=== PATIENT | female | born 1990 | race Hispanic/Latino ===

== ENCOUNTER 2016-02-13 10:18 | Emergency (ER) | payer OTHER ==
[~2016-02-13 10:18] MED LIST: ACET50TA PO; FERR325T3 PO; IBUP80TA PO
--- NOTE | 2016-02-13 11:08 | EDDOCDS ---
Nurse's Notes [facility] Name: Le Marquis Age: 25 yrs Sex: Female : 1990 Arrival Date: 02/13/2016 Time: 10:18 Bed Family 1 Private MD: AZRA Bermudez Diagnosis: Otitis media, unspecified Presentation: 02/12 10:33 Presenting complaint: Patient states: woke with left ear pain today. Adult Sepsis kr3 Screening: The patient does not have new or worsening altered mentation. Patient's respiratory rate is less than 22. Systolic blood pressure is greater than 100. Patient has a qSOFA score of 0- Negative Sepsis Screen. Suicide/Homicide risk assessment- the patient denies having any suicidal and/or homicidal ideations and does not present with any other emotional, behavioral or mental health complaints. Status: The patient is a dependent. Transition of care: patient was not received from another setting of care. 10:33 Acuity: HENNA Level 5 kr3 10:33 Method Of Arrival: Walkin/Carried/Asstd kr3 Triage Assessment: 10:34 General: Appears in no apparent distress, comfortable, Behavior is cooperative. Pain: kr3 Location: left ear Pain currently is 5 out of 10 on a pain scale. Pt Declines HIV testing. EENT: Reports nasal congestion nasal discharge. Respiratory: Respiratory effort is even, unlabored, Reports cough that is. Derm: Skin is pink, warm & dry. 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 Tylenol 1000mg Oral as needed (Last dose: 02/13/2016) - PMHx: none; - PSHx: none; - Social history: Smoking status: Patient states was never smoker of tobacco. No barriers to communication noted, The patient speaks fluent Maltese, Speaks appropriately for age. - Family history: Not pertinent. - : The pt / caregiver states he / she is not on anticoagulants. Home medication list is obtained from the patient. - Exposure Risk Screening:: None identified. Screenin:42 Screening information is obtained from the patient. Fall risk: No risks identified. kr3 Assistance ADL's: requires no assistance with activities of daily living. Abuse/DV Screen: The patient / caregiver reports he/she is: not in a situation that causes fear, pain or injury. Nutritional screening: No deficits noted. Advance Directives: Currently, there is no health care proxy. home support is adequate. Assessment: 10:42 General: Appears in no apparent distress, comfortable, Behavior is appropriate for age, kr3 cooperative. Vital Signs: 10:19 BP 101 / 60; Pulse 77; Resp 18 S; Temp 97.6(O); Pulse Ox 97% on R/A; Weight 58.97 kg dd6 (R); Height 5 ft. 0 in. (152.40 cm) (R); 10:19 Body Mass Index 25.39 (58.97 kg, 152.40 cm) dd6 Vitals: 10:19 Log In Time: February 13, 2016 at 10:14. dd6 ED Course: 10:19 Patient visited by Collin Hayes PCA. dd6 10:19 ANIBAL Bermudez is Private Physician. dd6 10:19 Patient moved to Waiting dd6 10:20 Patient moved to Pre RCE dd6 10:30 Rich Vitale PA-C is PHCP. dk1 10:30 Vanesa Pascal MD is Attending Physician. dk1 10:33 Triage Initiated kr3 10:38 Patient moved to Family 1 kr3 10:40 Patient visited by Rich Vitale PA-C. dk1 10:43 The patient / caregiver is instructed regarding the plan of care and ED course. Patient kr3 has correct armband on for positive identification. 10:43 No IV's were initiated during this patient's visit. No procedures done that require kr3 assistance. 10:59 ANIBAL Bermudez is Referral Physician. dk1 Order Results: There are currently no results for this order. Outcome: 10:43 No special radiology studies were completed. kr3 10:59 Discharge ordered by Provider. dk1 11:06 Discharge Assessment: patient administered narcotics - no. The following High Risk kr3 Discharge criteria are identified: None. Discharged to home ambulatory. Condition: stable. Discharge instructions given to patient, Demonstrated understanding of instructions, medications, Pt was receptive of discharge instructions/ teaching. Prescriptions given X 2. Property sent home with patient. 11:06 Patient left the ED. kr3 Signatures: Santa GaleRN RN kr3 Rich Vitale PA-C PA-C dk1 DesCollin gibbs, RECORD CENTER SPECIALIST RECORD CENTER SPECIALIST dd6 MTDD
--- NOTE | 2016-02-13 11:08 | EDDOCDS ---
Physician Documentation [facility] Name: Le Marquis Age: 25 yrs Sex: Female : 1990 Arrival Date: 02/13/2016 Time: 10:18 Bed Family 1 Private MD: ANIBAL Bermudez Disposition: 02/13/16 10:59 Discharged to Home/Self Care. Impression: Otitis media, unspecified. - Condition is Stable. - Discharge Instructions: Otitis Media, Adult. - Prescriptions for Amoxicillin 500 mg Oral Capsule - take 1 capsule by ORAL route every 8 hours for 10 days; 30 tablet. Tylenol 325 mg Oral Tablet - take 2 tablet by ORAL route every 6 hours as needed; 1 bottle. - Medication Reconciliation, Local Pharmacy Hours form. - Follow up: ANIBAL Bermudez; When: 2 - 3 days; Reason: Continuance of care. Follow up: Emergency Department; When: As needed; Reason: Worsening of conditions. - Problem is new. - Symptoms are unchanged. Historical: - Allergies: no known allergies; - Home Meds: 1. Tylenol 1000mg Oral as needed (Last dose: 02/13/2016) - PMHx: none; - PSHx: none; - Social history: Smoking status: Patient states was never smoker of tobacco. No barriers to communication noted, The patient speaks fluent Israeli, Speaks appropriately for age. - Family history: Not pertinent. - : The pt / caregiver states he / she is not on anticoagulants. Home medication list is obtained from the patient. - Exposure Risk Screening:: None identified. 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 0 in. (152.40 cm) (R); 10:19 Body Mass Index 25.39 (58.97 kg, 152.40 cm) dd6 MDM: 10:54 Financial registration complete. lg Signatures: Collin Ortiz, Santa Espinoza lgRN RN kr3 Rich Vitale PA-C PAChristina dk1 MTDD
--- NOTE | 2016-02-15 12:07 | EDDOCDS ---
Physician Documentation [facility] Name: Le Marquis Age: 25 yrs Sex: Female : 1990 Arrival Date: 02/13/2016 Time: 10:18 Bed Family 1 Private MD: ANIBAL Bermudez Disposition: 02/13/16 10:59 Discharged to Home/Self Care. Impression: Otitis media, unspecified. - Condition is Stable. - Discharge Instructions: Otitis Media, Adult. - Prescriptions for Amoxicillin 500 mg Oral Capsule - take 1 capsule by ORAL route every 8 hours for 10 days; 30 tablet. Tylenol 325 mg Oral Tablet - take 2 tablet by ORAL route every 6 hours as needed; 1 bottle. - Medication Reconciliation, Local Pharmacy Hours form. - Follow up: ANIBAL Bermudez; When: 2 - 3 days; Reason: Continuance of care. Follow up: Emergency Department; When: As needed; Reason: Worsening of conditions. - Problem is new. - Symptoms are unchanged. Historical: - Allergies: no known allergies; - Home Meds: 1. Tylenol 1000mg Oral as needed (Last dose: 02/13/2016) - PMHx: none; - PSHx: none; - Social history: Smoking status: Patient states was never smoker of tobacco. No barriers to communication noted, The patient speaks fluent Burmese, Speaks appropriately for age. - Family history: Not pertinent. - : The pt / caregiver states he / she is not on anticoagulants. Home medication list is obtained from the patient. - Exposure Risk Screening:: None identified. 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 0 in. (152.40 cm) (R); 10:19 Body Mass Index 25.39 (58.97 kg, 152.40 cm) dd6 MDM: 10:54 Financial registration complete. lg 12:57 [facility] Payment Agreement was scanned into [facility] and attached to record. lg 14:39 T-Sheet-- Draft Copy was scanned into [employer] [facility] and attached to record. gb Signatures: Estela Campoverde, Reg Reg gb Collin Ortiz, Reg Reg lg Santa Gale,RN RN kr3 Rich Vitale, GEORGINA duran1 The chart was reviewed and I authenticate all verbal orders and agree with the evaluation and treatment provided.Attachments: 12:57 [facility] Payment Agreement lg 14:39 T-Sheet-- Draft Copy gb Chart Complete MTDD
--- NOTE | 2016-02-15 12:07 | EDDOCDS ---
Nurse's Notes [facility] Name: Le Marquis Age: 25 yrs Sex: Female : 1990 Arrival Date: 02/13/2016 Time: 10:18 Bed Family 1 Private MD: AZRA Bermudez Diagnosis: Otitis media, unspecified Presentation: 02/12 10:33 Presenting complaint: Patient states: woke with left ear pain today. Adult Sepsis kr3 Screening: The patient does not have new or worsening altered mentation. Patient's respiratory rate is less than 22. Systolic blood pressure is greater than 100. Patient has a qSOFA score of 0- Negative Sepsis Screen. Suicide/Homicide risk assessment- the patient denies having any suicidal and/or homicidal ideations and does not present with any other emotional, behavioral or mental health complaints. Status: The patient is a dependent. Transition of care: patient was not received from another setting of care. 10:33 Acuity: HENNA Level 5 kr3 10:33 Method Of Arrival: Walkin/Carried/Asstd kr3 Triage Assessment: 10:34 General: Appears in no apparent distress, comfortable, Behavior is cooperative. Pain: kr3 Location: left ear Pain currently is 5 out of 10 on a pain scale. Pt Declines HIV testing. EENT: Reports nasal congestion nasal discharge. Respiratory: Respiratory effort is even, unlabored, Reports cough that is. Derm: Skin is pink, warm & dry. 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 Tylenol 1000mg Oral as needed (Last dose: 02/13/2016) - PMHx: none; - PSHx: none; - Social history: Smoking status: Patient states was never smoker of tobacco. No barriers to communication noted, The patient speaks fluent Maltese, Speaks appropriately for age. - Family history: Not pertinent. - : The pt / caregiver states he / she is not on anticoagulants. Home medication list is obtained from the patient. - Exposure Risk Screening:: None identified. Screenin:42 Screening information is obtained from the patient. Fall risk: No risks identified. kr3 Assistance ADL's: requires no assistance with activities of daily living. Abuse/DV Screen: The patient / caregiver reports he/she is: not in a situation that causes fear, pain or injury. Nutritional screening: No deficits noted. Advance Directives: Currently, there is no health care proxy. home support is adequate. Assessment: 10:42 General: Appears in no apparent distress, comfortable, Behavior is appropriate for age, kr3 cooperative. Vital Signs: 10:19 BP 101 / 60; Pulse 77; Resp 18 S; Temp 97.6(O); Pulse Ox 97% on R/A; Weight 58.97 kg dd6 (R); Height 5 ft. 0 in. (152.40 cm) (R); 10:19 Body Mass Index 25.39 (58.97 kg, 152.40 cm) dd6 Vitals: 10:19 Log In Time: February 13, 2016 at 10:14. dd6 ED Course: 10:19 Patient visited by Collin Hayes PCA. dd6 10:19 [facility] [place] Private Physician. dd6 10:19 Patient moved to Waiting dd6 10:20 Patient moved to Pre RCE dd6 10:30 Rich Vitale PA-C is PHCP. dk1 10:30 Vanesa Pascal MD is Attending Physician. dk1 10:33 Triage Initiated kr3 10:38 Patient moved to Family 1 kr3 10:40 Patient visited by Rich Vitale PA-C. dk1 10:43 The patient / caregiver is instructed regarding the plan of care and ED course. Patient юлия has correct armband on for positive identification. 10:43 No IV's were initiated during this patient's visit. No procedures done that require kr3 assistance. 10:59 ANIBAL Bermudez is Referral Physician. dk1 12:57 Patient name changed from Le\S\\S\Marquis\S\ to Le\S\ \S\Marquis. EDMS 12:57 [facility] Payment Agreement was scanned into [employer] and attached to record. lg 14:39 T-Sheet-- Draft Copy was scanned into [employer] and attached to record. gb Order Results: There are currently no results for this order. Outcome: 10:43 No special radiology studies were completed. kr3 10:59 Discharge ordered by Provider. dk1 11:06 Discharge Assessment: patient administered narcotics - no. The following High Risk kr3 Discharge criteria are identified: None. Discharged to home ambulatory. Condition: stable. Discharge instructions given to patient, Demonstrated understanding of instructions, medications, Pt was receptive of discharge instructions/ teaching. Prescriptions given X 2. Property sent home with patient. 11:06 Patient left the ED. kr3 Signatures: Dispatcher [employer] EDMS Estela Campoverde, Reg Reg gb Collin Ortiz, Reg Reg lg Santa Gale,RN RN kr3 Rich Vitale, PAChristina PA-C dk1 Collin Hayes, BRETT MALWARE ANALYST dd6 Chart Complete MTDD
--- NOTE | 2016-02-15 12:07 | EDDOCDS ---
Physician Documentation [facility] Name: Le Marquis Age: 25 yrs Sex: Female : 1990 Arrival Date: 02/13/2016 Time: 10:18 Bed Family 1 Private MD: ANIBAL Bermudez Disposition: 02/13/16 10:59 Discharged to Home/Self Care. Impression: Otitis media, unspecified. - Condition is Stable. - Discharge Instructions: Otitis Media, Adult. - Prescriptions for Amoxicillin 500 mg Oral Capsule - take 1 capsule by ORAL route every 8 hours for 10 days; 30 tablet. Tylenol 325 mg Oral Tablet - take 2 tablet by ORAL route every 6 hours as needed; 1 bottle. - Medication Reconciliation, Local Pharmacy Hours form. - Follow up: ANIBAL Bermudez; When: 2 - 3 days; Reason: Continuance of care. Follow up: Emergency Department; When: As needed; Reason: Worsening of conditions. - Problem is new. - Symptoms are unchanged. Historical: - Allergies: no known allergies; - Home Meds: 1. Tylenol 1000mg Oral as needed (Last dose: 02/13/2016) - PMHx: none; - PSHx: none; - Social history: Smoking status: Patient states was never smoker of tobacco. No barriers to communication noted, The patient speaks fluent Emirati, Speaks appropriately for age. - Family history: Not pertinent. - : The pt / caregiver states he / she is not on anticoagulants. Home medication list is obtained from the patient. - Exposure Risk Screening:: None identified. 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 0 in. (152.40 cm) (R); 10:19 Body Mass Index 25.39 (58.97 kg, 152.40 cm) dd6 MDM: 10:54 Financial registration complete. lg 12:57 [facility] [place] Payment Agreement was scanned into [employer] and attached to record. lg 14:39 T-Sheet-- Draft Copy was scanned into [employer] and attached to record. gb Signatures: Estela Campoverde, Reg Reg gb Collin Ortiz, Reg Reg lg Santa Gale,RN RN kr3 Rich Vitale, GEORGINA duran1 The chart was reviewed and I authenticate all verbal orders and agree with the evaluation and treatment provided.Attachments: 12:57 [facility] Payment Agreement lg 14:39 T-Sheet-- Draft Copy gb Chart Complete MTDD
== END 2016-02-13 11:06 | disposition home or self-care (01) ==
LOC: M ED 10:18
DX: H66.90 Otitis media, unspecified, unspecified ear (principal)

== ENCOUNTER 2017-02-04 15:01 | Emergency (ER) | payer OTHER ==
[2017-02-04 15:37] LABS: KETONE, URINE AUTO RFX TRACE mg/dL (NEGATIVE); MUCUS, URINE RFX SMALL (NEGATIVE); RBC, URINE AUTO RFX 2 /HPF (0-3); SQUAM EPITHELIAL CELL UR AURFX 5 /HPF (0-6)
[2017-02-04 15:38] LABS: LEUKOCYTE ESTERASE UR AUTO RFX 1+ (NEGATIVE); NITRITE, URINE AUTO RFX POSITIVE (NEGATIVE); WBC, URINE AUTO RFX 22 /HPF (0-3)
[2017-02-04] MEDS: ACETAMINOPHEN 325 MG TAB PO (16:11)
[2017-02-04] MEDS: CIPROFLOXACIN 500 MG TAB PO (16:11)
[2017-02-04] MEDS: PHENAZOPYRIDINE 100 MG TAB PO (16:11)
== END 2017-02-04 16:14 | disposition home or self-care (01) ==
LOC: M ED 15:01
DX: N30.00 Acute cystitis without hematuria (principal); J06.9 Acute upper respiratory infection, unspecified; H92.09 Otalgia, unspecified ear; J30.2 Other seasonal allergic rhinitis
CPT/HCPCS: 81001

== ENCOUNTER 2018-10-20 08:46 | Emergency (ER) | payer OTHER ==
[~2018-10-20] VITALS: Ht 152.4 cm; Wt 48.8 kg
[~2018-10-20 08:46] MED LIST changes: -ACET50TA PO; +CIPR-249 PO; +MAPA500T17 PO; +PYRI1TAB5 PO
[2018-10-20] MEDS ORDERED: CIPR-249 PO (10:35)
[2018-10-20] MEDS ORDERED: METR1GEL7 PV (10:35)
[2018-10-20 10:41] VITALS: BP 114/67
[2018-10-20 11:25] LABS: CHLAMYDIA DNA AMPLIFICATION NEGATIVE (NEGATIVE); GC DNA AMPLIFICATION NEGATIVE (NEGATIVE)
== END 2018-10-20 11:02 | disposition home or self-care (01) ==
LOC: M ED 08:46
DX: N30.00 Acute cystitis without hematuria (principal); N76.0 Acute vaginitis; J30.2 Other seasonal allergic rhinitis